=== PATIENT | female | born 1970 | race Caucasian/White ===

== ENCOUNTER 2017-05-06 20:03 | Emergency (ER) | payer MEDICAID ==
[~2017-05-06] VITALS: Ht 157.5 cm; Wt 70.0 kg
[~2017-05-06 20:03] MED LIST: LEVO500T2 PO; ONDA4TAB5 PO
[2017-05-06 23:21] LABS: CHLORIDE 105 mEq/L (98-107)
[2017-05-06 23:23] LABS: BASOPHILS % 0.6 % (0.0-2.0); EOSINOPHILS % 2.9 % (0.0-5.0); HEMOGLOBIN. 12.4 g/dL (12.0-16.0); LYMPHOCYTES % 26.2 % (20.0-50.0); MEAN CORPUSCULAR HEMOGLOBIN 30.7 pg (28.0-32.0); MEAN CORPUSCULAR VOLUME 88.8 fL (81.0-99.0); MEAN PLATELET VOLUME 7.9 fl (7.4-10.4); MONOCYTES % 7.7 % (2.0-8.0); NEUTROPHILS % 62.6 % (40.0-76.0); PLATELET 259 x1000/uL (130-400); RED BLOOD CELL COUNT 4.05 mill/uL (4.2-5.4); RED CELL DISTRIBUTION WIDTH 13.6 % (11.6-14.6)
[2017-05-06 23:25] LABS: CARBON DIOXIDE 26 mEq/L (21-32)
[2017-05-06 23:31] LABS: TROPONIN I < 0.02 ng/mL (0.00-0.04)
[2017-05-07 01:34] VITALS: BP 131/59
== END 2017-05-07 01:35 | disposition home or self-care (01) ==
LOC: ER 22:24
DX: E11.40 Type 2 diabetes mellitus with diabetic neuropathy, unspecified (principal); I10 Essential (primary) hypertension; E78.00 Pure hypercholesterolemia, unspecified; Z90.49 Acquired absence of other specified parts of digestive tract
CPT/HCPCS: 36415; 71010; 80048; 84484; 85025; 93005; 99285; Z7610

== ENCOUNTER 2018-05-24 10:40 | Emergency (ER) | payer MEDICAID ==
[~2018-05-24] VITALS: Ht 162.6 cm; Wt 66.0 kg
[2018-05-24] MEDS ORDERED: IBUPROFEN 600MG TABLET PO STA (11:51)
[2018-05-24] MEDS ORDERED: ACETAMINOPHEN 325MG TABLET PO STA (11:51)
[2018-05-24 12:32] LABS: BASOPHILS % 0.9 % (0.0-2.0); EOSINOPHILS % 3.6 % (0.0-5.0); HEMATOCRIT. 37.9 % (36.0-48.0); LYMPHOCYTES % 23.2 % (20.0-50.0); MEAN CORPUSCULAR HEMOGLOBIN 31.2 pg (28.0-32.0); MEAN CORPUSCULAR VOLUME 90.7 fL (81.0-99.0); MEAN PLATELET VOLUME 7.3 fl (7.4-10.4); MONOCYTES % 7.6 % (2.0-8.0); NEUTROPHILS % 64.7 % (40.0-76.0); PLATELET 289 x1000/uL (130-400); RED BLOOD CELL COUNT 4.18 mill/uL (4.2-5.4); RED CELL DISTRIBUTION WIDTH 13.7 % (11.6-14.6)
[2018-05-24 12:38] LABS: CHLORIDE 103 mEq/L (98-107)
[2018-05-24 12:40] LABS: CLARITY URINE CLEAR (CLEAR); COLOR URINE YELLOW (YELLOW); KETONES URINE NEGATIVE (NEGATIVE); LEUKOCYTE ESTERASE URINE NEGATIVE (NEGATIVE); NITRITE URINE NEGATIVE (NEGATIVE); OCCULT BLOOD URINE 1+ (NEGATIVE); PH URINE 6.5 (4.5-8.0); PROTEIN URINE NEGATIVE (NEGATIVE); SPECIFIC GRAVITY URINE 1.016 (1.005-1.030); UROBILINOGEN URINE 0.2 E.U./dL (0.2-1.0)
[2018-05-24 12:42] LABS: ETHANOL BLOOD < 10 mg/dL
[2018-05-24 13:05] LABS: *AMPHETAMINES SCREEN URINE NEGATIVE (NEGATIVE); *BARBITURATES SCREEN URINE NEGATIVE (NEGATIVE); *BENZODIAZEPINES SCREEN URINE NEGATIVE (NEGATIVE); *COCAINE SCREEN URINE NEGATIVE (NEGATIVE); CANNABINOID URINE SCREEN NEGATIVE (NEGATIVE); METHADONE URINE SCREEN NEGATIVE (NEGATIVE); OPIATES URINE SCREEN NEGATIVE (NEGATIVE); PHENCYCLIDINE URINE SCREEN NEGATIVE (NEGATIVE)
[2018-05-24 14:31] VITALS: BP 122/54
== END 2018-05-24 14:32 | disposition home or self-care (01) ==
LOC: ER 10:48
DX: N39.0 Urinary tract infection, site not specified (principal); M54.2 Cervicalgia; R07.89 Other chest pain; E11.9 Type 2 diabetes mellitus without complications; I10 Essential (primary) hypertension; E78.00 Pure hypercholesterolemia, unspecified; Z90.49 Acquired absence of other specified parts of digestive tract; Z98.890 Other specified postprocedural states
CPT/HCPCS: 36415; 71045; 80053; 80305; 81003; 81025; 83690; 83880; 84484; 85025; 85730; 87086; 93005; 99285; G0482

== ENCOUNTER 2019-07-04 08:56 | Emergency (ER) | payer MEDICAID ==
[~2019-07-04] VITALS: Ht 152.4 cm; Wt 79.0 kg
[2019-07-04] MEDS ORDERED: SODIUM CHLORIDE 0.9% 1000ML BAG (SEPSIS BOLUS) IV ONE (09:30)
[2019-07-04 09:54] LABS: BASOPHILS % 0.4 % (0.0-2.0); EOSINOPHILS % 1.8 % (0.0-5.0); HEMATOCRIT. 37.5 % (36.0-48.0); HEMOGLOBIN. 12.9 g/dL (12.0-16.0); LYMPHOCYTES % 32.2 % (20.0-50.0); MEAN CORPUSCULAR HEMOGLOBIN 30.6 pg (28.0-32.0); MEAN CORPUSCULAR VOLUME 89.2 fL (81.0-99.0); MEAN PLATELET VOLUME 7.5 fl (7.4-10.4); MONOCYTES % 8.3 % (2.0-8.0); NEUTROPHILS % 57.3 % (40.0-76.0); PLATELET 306 x1000/uL (130-400); RED CELL DISTRIBUTION WIDTH 14.1 % (11.6-14.6)
[2019-07-04 09:56] LABS: CHLORIDE 104 mEq/L (98-107)
[2019-07-04 09:57] LABS: PROTHROMBIN TIME 10.3 sec (9.6-11.0)
[2019-07-04 10:12] LABS: HCG SCREEN NEGATIVE
[2019-07-04 10:18] LABS: CLARITY URINE CLEAR (CLEAR); COLOR URINE YELLOW (YELLOW); KETONES URINE NEGATIVE (NEGATIVE); LEUKOCYTE ESTERASE URINE NEGATIVE (NEGATIVE); NITRITE URINE NEGATIVE (NEGATIVE); OCCULT BLOOD URINE 1+ (NEGATIVE); PH URINE 6.5 (4.5-8.0); PROTEIN URINE NEGATIVE (NEGATIVE); SPECIFIC GRAVITY URINE 1.012 (1.005-1.030); UROBILINOGEN URINE 0.2 E.U./dL (0.2-1.0)
[2019-07-04] MEDS ORDERED: KETOROLAC 30MG/ML VIAL IV ONE (11:00)
[2019-07-04] MEDS ORDERED: CEFTRIAXONE 1 G PREMIX 50 ML IV ONE (11:00)
[2019-07-04 15:00] VITALS: BP 121/70
== END 2019-07-04 15:17 | disposition home or self-care (01) ==
LOC: ER 08:56
DX: N30.00 Acute cystitis without hematuria (principal); E11.9 Type 2 diabetes mellitus without complications; E78.00 Pure hypercholesterolemia, unspecified; I10 Essential (primary) hypertension; Z90.49 Acquired absence of other specified parts of digestive tract; Z98.890 Other specified postprocedural states; Z88.6 Allergy status to analgesic agent; Z79.899 Other long term (current) drug therapy; Z86.73 Personal history of transient ischemic attack (TIA), and cerebral infarction without residual deficits; Z87.19 Personal history of other diseases of the digestive system
CPT/HCPCS: 36415; 71045; 74176; 76830; 76856; 80053; 81003; 83605; 83690; 84145; 84484; 84703; 85025; 85610; 87040; 87086; 93005; 96365; 96366; 96375; 99284; J0696; J1885; J7030

== ENCOUNTER 2019-10-24 09:04 | Emergency (ER) | payer MEDICAID ==
[~2019-10-24] VITALS: Ht 154.9 cm; Wt 78.0 kg
[2019-10-24 11:52] LABS: BASOPHILS % 0.8 % (0.0-2.0); EOSINOPHILS % 3.6 % (0.0-5.0); HEMATOCRIT. 37.2 % (36.0-48.0); HEMOGLOBIN. 13.1 g/dL (12.0-16.0); MEAN CORPUSCULAR HEMOGLOBIN 31.5 pg (28.0-32.0); MEAN CORPUSCULAR VOLUME 89.5 fL (81.0-99.0); MEAN PLATELET VOLUME 7.5 fl (7.4-10.4); MONOCYTES % 6.7 % (2.0-8.0); NEUTROPHILS % 62.9 % (40.0-76.0); PLATELET 292 x1000/uL (130-400); RED BLOOD CELL COUNT 4.15 mill/uL (4.2-5.4); RED CELL DISTRIBUTION WIDTH 13.9 % (11.6-14.6)
[2019-10-24 11:56] LABS: CHLORIDE 104 mEq/L (98-107)
[2019-10-24 12:04] LABS: HCG SCREEN NEGATIVE
[2019-10-24 12:27] LABS: CLARITY URINE CLEAR (CLEAR); COLOR URINE YELLOW (YELLOW); KETONES URINE NEGATIVE (NEGATIVE); LEUKOCYTE ESTERASE URINE NEGATIVE (NEGATIVE); NITRITE URINE NEGATIVE (NEGATIVE); OCCULT BLOOD URINE 1+ (NEGATIVE); PROTEIN URINE NEGATIVE (NEGATIVE); SPECIFIC GRAVITY URINE 1.014 (1.005-1.030); UROBILINOGEN URINE 0.2 E.U./dL (0.2-1.0)
[2019-10-24] MEDS ORDERED: KETOROLAC 30MG/ML VIAL IV STA (16:50)
[2019-10-24] MEDS ORDERED: TRAMADOL 50MG TABLET PO ONE (18:45)
[2019-10-24 21:03] VITALS: BP 126/81
== END 2019-10-24 21:03 | disposition home or self-care (01) ==
LOC: ER 09:04
DX: M79.18 Myalgia, other site (principal); R51 Headache; E11.9 Type 2 diabetes mellitus without complications; E78.00 Pure hypercholesterolemia, unspecified; I10 Essential (primary) hypertension; Z90.49 Acquired absence of other specified parts of digestive tract; Z98.890 Other specified postprocedural states; Z88.6 Allergy status to analgesic agent
CPT/HCPCS: 36415; 71045; 80053; 81003; 81025; 82962; 84703; 85025; 93005; 96374; 99285; J1885

== ENCOUNTER 2021-02-06 11:15 | Emergency (ER) | payer MEDICAID ==
[~2021-02-06] VITALS: Ht 157.5 cm; Wt 80.0 kg
[2021-02-06] MEDS ORDERED: MORPHINE SULFATE 2 MG/ML CPJ (NOT FOR IM USE) IV ONE (11:45)
[2021-02-06 12:30] LABS: CLARITY URINE CLEAR (CLEAR); COLOR URINE YELLOW (YELLOW); KETONES URINE TRACE (NEGATIVE); LEUKOCYTE ESTERASE URINE NEGATIVE (NEGATIVE); NITRITE URINE NEGATIVE (NEGATIVE); OCCULT BLOOD URINE 1+ (NEGATIVE); PH URINE 5.5 (4.5-8.0); PROTEIN URINE NEGATIVE (NEGATIVE); SPECIFIC GRAVITY URINE 1.036 (1.005-1.030); UROBILINOGEN URINE 0.2 E.U./dL (0.2-1.0)
[2021-02-06 12:37] LABS: BASOPHILS % 0.6 % (0.0-2.0); EOSINOPHILS % 3.1 % (0.0-5.0); HEMOGLOBIN. 13.2 g/dL (12.0-16.0); LYMPHOCYTES % 29.8 % (20.0-50.0); MEAN CORPUSCULAR HEMOGLOBIN 30.8 pg (28.0-32.0); MEAN CORPUSCULAR VOLUME 88.7 fL (81.0-99.0); MEAN PLATELET VOLUME 7.7 fl (7.4-10.4); MONOCYTES % 7.7 % (2.0-8.0); NEUTROPHILS % 58.8 % (40.0-76.0); PLATELET 250 x1000/uL (130-400); RED BLOOD CELL COUNT 4.28 mill/uL (4.2-5.4); RED CELL DISTRIBUTION WIDTH 13.7 % (11.6-14.6)
[2021-02-06] MEDS ORDERED: KETOROLAC 15MG/ML VIAL IV NR (12:45)
[2021-02-06 12:47] LABS: CHLORIDE 102 mEq/L (98-107)
[2021-02-06] MEDS ORDERED: LACTATED RINGERS 1,000 ML IV SCH (13:15)
[2021-02-06] MEDS ORDERED: SULF1TAB MT (14:03)
[2021-02-06 15:15] VITALS: BP 125/61
== END 2021-02-06 15:19 | disposition home or self-care (01) ==
LOC: ER 11:43
DX: R10.11 Right upper quadrant pain (principal); R30.0 Dysuria; E11.9 Type 2 diabetes mellitus without complications; E78.00 Pure hypercholesterolemia, unspecified; I10 Essential (primary) hypertension; Z98.890 Other specified postprocedural states; Z90.49 Acquired absence of other specified parts of digestive tract
CPT/HCPCS: 36415; 74176; 76700; 80053; 81003; 81025; 83690; 85025; 87086; 96361; 96374; 96375; 99285; J1885; J2270

== ENCOUNTER 2021-04-27 09:21 | Inpatient (IN) | payer MEDICAID ==
[~2021-04-27] VITALS: Ht 152.4 cm; Wt 75.3 kg
[~2021-04-27 09:21] MED LIST changes: +SULF1TAB MT
[2021-04-27] MEDS ORDERED: ACETAMINOPHEN 325MG TABLET PO STA (09:58)
[2021-04-27 10:43] LABS: CLARITY URINE CLEAR (CLEAR); COLOR URINE YELLOW (YELLOW); KETONES URINE NEGATIVE (NEGATIVE); LEUKOCYTE ESTERASE URINE NEGATIVE (NEGATIVE); NITRITE URINE NEGATIVE (NEGATIVE); OCCULT BLOOD URINE 1+ (NEGATIVE); PH URINE 5.5 (4.5-8.0); PROTEIN URINE NEGATIVE (NEGATIVE); SPECIFIC GRAVITY URINE 1.034 (1.005-1.030); UROBILINOGEN URINE 0.2 E.U./dL (0.2-1.0)
[2021-04-27 12:36] LABS: BASOPHILS % 0.6 % (0.0-2.0); EOSINOPHILS % 3.2 % (0.0-5.0); HEMATOCRIT. 38.6 % (36.0-48.0); HEMOGLOBIN. 13.3 g/dL (12.0-16.0); LYMPHOCYTES % 28.3 % (20.0-50.0); MEAN CORPUSCULAR HEMOGLOBIN 30.5 pg (28.0-32.0); MEAN CORPUSCULAR VOLUME 88.7 fL (81.0-99.0); MEAN PLATELET VOLUME 7.5 fl (7.4-10.4); MONOCYTES % 8.4 % (2.0-8.0); NEUTROPHILS % 59.5 % (40.0-76.0); PLATELET 264 x1000/uL (130-400); RED BLOOD CELL COUNT 4.35 mill/uL (4.2-5.4)
[2021-04-27 12:40] LABS: CHLORIDE 106 mEq/L (98-107)
[2021-04-27] MEDS ORDERED: NA PHOS,M-B/NA PHOS,DI-BA ENEMA 118ML PR PRN (14:15)
[2021-04-27] MEDS ORDERED: MAGNESIUM/ALUMINUM HYDROXIDE/SIMETHICONE 30ML UDC PO PRN (14:15)
[2021-04-27] MEDS ORDERED: GUAIFENESIN 200MG/10ML SUGAR FREE UDC PO PRN (14:15)
[2021-04-27] MEDS ORDERED: ACETAMINOPHEN 325MG TABLET PO PRN ×2 (14:15)
[2021-04-27] MEDS ORDERED: DOCUSATE SODIUM 100MG CAPSULE PO PRN (14:15)
[2021-04-27] MEDS ORDERED: ZOLPIDEM TARTRATE 5MG TABLET PO PRN (14:15)
[2021-04-27] MEDS ORDERED: IPRATROPIUM/ALBUTEROL 0.5-3(2.5)MG/3ML NEB NEB PRN (14:15)
[2021-04-27] MEDS ORDERED: NITROGLYCERIN 0.4MG TABLET SL SL PRN (14:15)
[2021-04-27] MEDS ORDERED: CLONIDINE 0.1MG TABLET PO PRN (14:15)
[2021-04-27] MEDS ORDERED: ONDANSETRON HCL 4MG/2ML INJ IV PRN (14:15)
[2021-04-27] MEDS: ENOXAPARIN 40MG/0.4ML SYR SUBCUT SCH (15:07)
[2021-04-27 15:43] LABS: VITAMIN B12 SERUM > 2000.0 pg/mL (211-911)
[2021-04-27] MEDS ORDERED: DEXTROSE 50% WATER 50ML SYRINGE IV PRN (21:45)
[2021-04-27 22:30] VITALS: BP 111/60
[2021-04-27 23:10] VITALS: BP 111/60
[2021-04-27] MEDS: KETOROLAC 15MG/ML VIAL IV PRN (23:20)
[2021-04-27] MEDS: FAMOTIDINE 20MG TABLET PO SCH (23:20)
[2021-04-27] MEDS: ASCORBIC ACID 500 MG TABLET PO SCH (23:20)
[2021-04-28] MEDS ORDERED: METF-416 PO (00:44)
[2021-04-28] MEDS ORDERED: INSU100I28 SUBCUT (00:44)
[2021-04-28] MEDS ORDERED: AMIT10TA6 PO (00:44)
[2021-04-28] MEDS ORDERED: METO-539 PO (00:44)
[2021-04-28] MEDS ORDERED: ALBU90AE INH (00:44)
[2021-04-28] MEDS ORDERED: FAMO20TA8 PO (00:44)
[2021-04-28 04:00] VITALS: BP 105/49
[2021-04-28] MEDS: KETOROLAC 15MG/ML VIAL IV PRN (05:24)
[2021-04-28 07:45] LABS: *AMPHETAMINES SCREEN URINE NEGATIVE (NEGATIVE); *BARBITURATES SCREEN URINE NEGATIVE (NEGATIVE); *BENZODIAZEPINES SCREEN URINE NEGATIVE (NEGATIVE); *COCAINE SCREEN URINE NEGATIVE (NEGATIVE)
[2021-04-28] MEDS: BLOOD SUGAR DIAGNOSTIC STRIP TEST SCH ×2 (07:45→12:26)
[2021-04-28 07:46] LABS: CANNABINOID URINE SCREEN NEGATIVE (NEGATIVE); METHADONE URINE SCREEN NEGATIVE (NEGATIVE); OPIATES URINE SCREEN NEGATIVE (NEGATIVE); PHENCYCLIDINE URINE SCREEN NEGATIVE (NEGATIVE)
[2021-04-28] MEDS: INSULIN LISPRO 100 UNITS/ML SUBCUT SCH ×2 (08:08→12:28)
[2021-04-28] MEDS: ASCORBIC ACID 500 MG TABLET PO SCH (08:12)
[2021-04-28] MEDS: FAMOTIDINE 20MG TABLET PO SCH (08:12)
[2021-04-28] MEDS: ENOXAPARIN 40MG/0.4ML SYR SUBCUT SCH (08:12)
[2021-04-28 08:21] VITALS: BP 103/71
[2021-04-28] MEDS ORDERED: ASPIRIN 325MG EC TABLET PO SCH (09:00)
[2021-04-28] MEDS ORDERED: CHOLECALCIFEROL (D3) 1000 UNIT TABLET PO SCH (09:00)
[2021-04-28] MEDS ORDERED: ZINC SULFATE 220 MG ( 50 ) CAPSULE PO SCH (09:00)
[2021-04-28 10:47] LABS: BASOPHILS % 0.5 % (0.0-2.0); EOSINOPHILS % 3.3 % (0.0-5.0); HEMATOCRIT. 39.8 % (36.0-48.0); HEMOGLOBIN. 13.4 g/dL (12.0-16.0); LYMPHOCYTES % 29.4 % (20.0-50.0); MEAN CORPUSCULAR HEMOGLOBIN 30.2 pg (28.0-32.0); MEAN CORPUSCULAR VOLUME 89.5 fL (81.0-99.0); MONOCYTES % 8.6 % (2.0-8.0); NEUTROPHILS % 58.2 % (40.0-76.0); PLATELET 258 x1000/uL (130-400); RED BLOOD CELL COUNT 4.45 mill/uL (4.2-5.4); RED CELL DISTRIBUTION WIDTH 14.1 % (11.6-14.6)
[2021-04-28 12:00] VITALS: BP 100/59
[2021-04-28 12:11] LABS: CHLORIDE 105 mEq/L (98-107)
[2021-04-28 12:23] LABS: CREATINE KINASE 111 IU/L (26-192)
[2021-04-28 12:37] LABS: PHOSPHORUS 3.7 mg/dL (2.5-4.9)
[2021-04-28 12:42] LABS: CREATINE KINASE MB FRACTION < 1.0 ng/mL (0.5-3.6)
[2021-04-28 13:57] VITALS: BP 110/60
[2021-04-28] MEDS ORDERED: ATORVASTATIN CALCIUM 20MG TABLET PO SCH (21:00)
== END 2021-04-28 15:18 | disposition home or self-care (01) | DRG 203 ==
LOC: ER 09:21 → MICUSO 13:25 → EDBEDREQTM 13:39 → EDBEDREQ 13:39 → 6WST 21:12
PROVIDERS: ADMIT Internal Medicine; ATTEND Internal Medicine
DX: R07.89 Other chest pain (principal); K76.0 Fatty (change of) liver, not elsewhere classified; E11.65 Type 2 diabetes mellitus with hyperglycemia; E66.9 Obesity, unspecified; E78.00 Pure hypercholesterolemia, unspecified; I10 Essential (primary) hypertension; Z79.82 Long term (current) use of aspirin; Z82.49 Family history of ischemic heart disease and other diseases of the circulatory system; Z90.49 Acquired absence of other specified parts of digestive tract; Z88.5 Allergy status to narcotic agent; Z98.891 History of uterine scar from previous surgery
CPT/HCPCS: 36415; 71045; 74176; 80053; 80061; 80305; 81003; 82550; 82553; 82607; 82962; 83036; 83735; 83880; 84100; 84484; 85025; 93005; 93306; 93970; 99285; J1650; J1815; J1885

== ENCOUNTER 2021-05-20 21:00 | Emergency (ER) | payer MEDICAID ==
[~2021-05-20] VITALS: Ht 152.4 cm; Wt 75.9 kg
[~2021-05-20 21:00] MED LIST changes: +ALBU90AE INH; +AMIT10TA6 PO; +FAMO20TA8 PO; +INSU100I28 SUBCUT; +METF-416 PO; +METO-539 PO; +SULF-299 MT; -SULF1TAB MT
[2021-05-20] MEDS ORDERED: IBUPROFEN 600MG TABLET PO STA (22:35)
[2021-05-20] MEDS ORDERED: BACITRACIN ZINC OINT UDPKT TOP ONE (23:00)
[2021-05-20] MEDS ORDERED: TETANUS, DIPHTHERIA, PERTUSSIS VAC/PF 0.5ML (>7YR OLD) IM ONE (23:00)
[2021-05-21] MEDS ORDERED: BACITRACIN ZINC OINT UDPKT TOP ONE (00:30)
[2021-05-21] MEDS ORDERED: LIDOCAINE HCL/PF 1% 10 MG/ML 5ML VIAL INFIL ONE (00:30)
[2021-05-21] MEDS ORDERED: SULF1TAB48 PO (00:55)
[2021-05-21] MEDS ORDERED: CEPH500C2 MT (00:55)
[2021-05-21] MEDS ORDERED: IBUP-2029 PO (00:55)
[2021-05-21 01:00] VITALS: BP 119/69
== END 2021-05-21 01:00 | disposition home or self-care (01) ==
LOC: ER 21:00
DX: S91.331A Puncture wound without foreign body, right foot, initial encounter (principal); L03.115 Cellulitis of right lower limb; W26.0XXA Contact with knife, initial encounter; Y93.89 Activity, other specified; Y92.89 Other specified places as the place of occurrence of the external cause; I10 Essential (primary) hypertension; E11.9 Type 2 diabetes mellitus without complications; Z79.899 Other long term (current) drug therapy; Z79.4 Long term (current) use of insulin
CPT/HCPCS: 73590; 73630; 90471; 90715; 99284; J3490; Z7610

== ENCOUNTER 2021-05-23 08:53 | Emergency (ER) | payer MEDICAID ==
[~2021-05-23] VITALS: Ht 157.5 cm; Wt 74.0 kg
[~2021-05-23 08:53] MED LIST changes: +CEPH500C2 MT; +IBUP-2029 PO; +SULF1TAB48 PO
[2021-05-23 11:39] VITALS: BP 135/79
[2021-05-23] MEDS ORDERED: GABA-532 MT (11:44)
[2021-05-23] MEDS ORDERED: HYDROCODONE/ACETAMINOPHEN 5/325MG TABLET PO ONE (11:45)
== END 2021-05-23 12:27 | disposition home or self-care (01) ==
LOC: ER 08:53
DX: E11.649 Type 2 diabetes mellitus with hypoglycemia without coma (principal); E11.621 Type 2 diabetes mellitus with foot ulcer; G62.9 Polyneuropathy, unspecified; R10.9 Unspecified abdominal pain; K76.9 Liver disease, unspecified; E78.00 Pure hypercholesterolemia, unspecified; I10 Essential (primary) hypertension; Z79.4 Long term (current) use of insulin
CPT/HCPCS: 82962; 99283

== ENCOUNTER 2021-07-04 19:14 | Emergency (ER) | payer MEDICAID ==
[~2021-07-04] VITALS: Ht 152.4 cm; Wt 74.0 kg
[~2021-07-04 19:14] MED LIST changes: +GABA-532 MT
[2021-07-05] MEDS ORDERED: ACETAMINOPHEN 325MG TABLET PO STA (00:08)
[2021-07-05] MEDS ORDERED: KETOROLAC 30MG/ML VIAL IV STA (00:08)
[2021-07-05] MEDS ORDERED: ONDANSETRON HCL 4MG/2ML INJ IV STA (00:08)
[2021-07-05] MEDS ORDERED: SODIUM CHLORIDE 0.9% 1,000 ML IV ONE (00:15)
[2021-07-05 00:33] LABS: BASOPHILS % 0.5 % (0.0-2.0); EOSINOPHILS % 2.9 % (0.0-5.0); HEMATOCRIT. 37.9 % (36.0-48.0); HEMOGLOBIN. 13.5 g/dL (12.0-16.0); LYMPHOCYTES % 28.9 % (20.0-50.0); MEAN CORPUSCULAR HEMOGLOBIN 31.6 pg (28.0-32.0); MEAN CORPUSCULAR VOLUME 88.6 fL (81.0-99.0); MEAN PLATELET VOLUME 7.5 fl (7.4-10.4); MONOCYTES % 8.3 % (2.0-8.0); NEUTROPHILS % 59.4 % (40.0-76.0); PLATELET 265 x1000/uL (130-400); RED BLOOD CELL COUNT 4.28 mill/uL (4.2-5.4); RED CELL DISTRIBUTION WIDTH 13.5 % (11.6-14.6)
[2021-07-05 00:43] LABS: CHLORIDE 102 mEq/L (98-107)
[2021-07-05 00:46] LABS: ETHANOL BLOOD < 10 mg/dL
[2021-07-05 01:12] LABS: PROTHROMBIN TIME 10.4 sec (9.6-11.0)
[2021-07-05 03:29] LABS: CLARITY URINE CLEAR (CLEAR); COLOR URINE YELLOW (YELLOW); KETONES URINE NEGATIVE (NEGATIVE); LEUKOCYTE ESTERASE URINE NEGATIVE (NEGATIVE); NITRITE URINE NEGATIVE (NEGATIVE); OCCULT BLOOD URINE TRACE (NEGATIVE); PH URINE 7.5 (4.5-8.0); PROTEIN URINE NEGATIVE (NEGATIVE); SPECIFIC GRAVITY URINE 1.025 (1.005-1.030); UROBILINOGEN URINE 0.2 E.U./dL (0.2-1.0)
[2021-07-05] MEDS ORDERED: IOHEXOL-300 100 ML BOTTLE ONE (04:04)
[2021-07-05 05:25] VITALS: BP 109/66
== END 2021-07-05 05:52 | disposition home or self-care (01) ==
LOC: ER 19:14 → CANBEDREQ 07-05 07:11
DX: R10.11 Right upper quadrant pain (principal); E11.9 Type 2 diabetes mellitus without complications; E78.00 Pure hypercholesterolemia, unspecified; I10 Essential (primary) hypertension; Z90.49 Acquired absence of other specified parts of digestive tract; Z98.890 Other specified postprocedural states; Z79.899 Other long term (current) drug therapy
CPT/HCPCS: 36415; 74177; 76705; 80053; 80320; 81003; 83605; 83690; 84484; 85025; 85610; 93005; 96361; 96374; 96375; 99285; J1885; J2405; J7030; Q9967; G0480

== ENCOUNTER 2021-07-11 13:18 | Emergency (ER) | payer MEDICAID ==
[~2021-07-11] VITALS: Ht 152.4 cm; Wt 69.0 kg
[2021-07-11] MEDS ORDERED: DIPHENHYDRAMINE 50MG/ML VIAL IV ONE (13:45)
[2021-07-11] MEDS ORDERED: SODIUM CHLORIDE 0.9% 1,000 ML IV ONE (13:45)
[2021-07-11] MEDS ORDERED: METOCLOPRAMIDE HCL 10MG/2ML VIAL IV ONE (13:45)
[2021-07-11 14:00] VITALS: BP 108/90
[2021-07-11 15:01] LABS: BASOPHILS % 0.7 % (0.0-2.0); EOSINOPHILS % 1.7 % (0.0-5.0); HEMOGLOBIN. 14.3 g/dL (12.0-16.0); LYMPHOCYTES % 21.8 % (20.0-50.0); MEAN CORPUSCULAR HEMOGLOBIN 30.4 pg (28.0-32.0); MEAN CORPUSCULAR VOLUME 89.2 fL (81.0-99.0); MEAN PLATELET VOLUME 7.9 fl (7.4-10.4); MONOCYTES % 5.5 % (2.0-8.0); NEUTROPHILS % 70.3 % (40.0-76.0); PLATELET 271 x1000/uL (130-400); RED BLOOD CELL COUNT 4.71 mill/uL (4.2-5.4); RED CELL DISTRIBUTION WIDTH 13.6 % (11.6-14.6)
[2021-07-11 15:07] LABS: CHLORIDE 103 mEq/L (98-107)
== END 2021-07-11 15:53 | disposition home or self-care (01) ==
LOC: ER 13:18
DX: G43.909 Migraine, unspecified, not intractable, without status migrainosus (principal); E11.9 Type 2 diabetes mellitus without complications; I10 Essential (primary) hypertension; N28.9 Disorder of kidney and ureter, unspecified; F41.9 Anxiety disorder, unspecified; Z90.49 Acquired absence of other specified parts of digestive tract; Z98.61 Coronary angioplasty status; Z79.4 Long term (current) use of insulin; Z88.5 Allergy status to narcotic agent
CPT/HCPCS: 36415; 70450; 80053; 85025; 96374; 96375; 99284; J1200; J2765; J7030

== ENCOUNTER 2021-07-24 08:22 | Emergency (ER) | payer MEDICAID ==
[~2021-07-24] VITALS: Ht 157.5 cm; Wt 73.0 kg
[2021-07-24 14:31] LABS: CLARITY URINE CLEAR (CLEAR); COLOR URINE YELLOW (YELLOW); KETONES URINE NEGATIVE (NEGATIVE); LEUKOCYTE ESTERASE URINE NEGATIVE (NEGATIVE); NITRITE URINE NEGATIVE (NEGATIVE); OCCULT BLOOD URINE TRACE (NEGATIVE); PROTEIN URINE NEGATIVE (NEGATIVE); SPECIFIC GRAVITY URINE 1.024 (1.005-1.030); UROBILINOGEN URINE 0.2 E.U./dL (0.2-1.0)
[2021-07-24] MEDS ORDERED: AZIT250T12 MT (14:54)
[2021-07-24] MEDS ORDERED: ALBU18HF2 IH (14:54)
[2021-07-24 15:17] VITALS: BP 146/62
== END 2021-07-24 15:18 | disposition home or self-care (01) ==
LOC: ER 08:22
DX: J20.9 Acute bronchitis, unspecified (principal); F41.9 Anxiety disorder, unspecified; E11.9 Type 2 diabetes mellitus without complications; I10 Essential (primary) hypertension; G43.909 Migraine, unspecified, not intractable, without status migrainosus; Z90.49 Acquired absence of other specified parts of digestive tract; Z98.890 Other specified postprocedural states; Z79.899 Other long term (current) drug therapy; Z20.822 Contact with and (suspected) exposure to COVID-19
CPT/HCPCS: 71045; 81003; 81025; 87426; 99284

== ENCOUNTER 2021-09-29 08:50 | Emergency (ER) | payer MEDICAID ==
[~2021-09-29] VITALS: Ht 152.4 cm; Wt 80.0 kg
[~2021-09-29 08:50] MED LIST changes: +ALBU18HF2 IH; +AZIT250T12 MT
[2021-09-29 08:52] VITALS: BP 145/80
[2021-09-29 09:51] LABS: BASOPHILS % 0.6 % (0.0-2.0); EOSINOPHILS % 2.3 % (0.0-5.0); HEMATOCRIT. 41.7 % (36.0-48.0); HEMOGLOBIN. 14.1 g/dL (12.0-16.0); LYMPHOCYTES % 31.6 % (20.0-50.0); MEAN CORPUSCULAR HEMOGLOBIN 30.3 pg (28.0-32.0); MEAN CORPUSCULAR VOLUME 89.5 fL (81.0-99.0); MEAN PLATELET VOLUME 7.6 fl (7.4-10.4); MONOCYTES % 6.4 % (2.0-8.0); NEUTROPHILS % 59.1 % (40.0-76.0); PLATELET 265 x1000/uL (130-400); RED BLOOD CELL COUNT 4.66 mill/uL (4.2-5.4); RED CELL DISTRIBUTION WIDTH 13.7 % (11.6-14.6)
[2021-09-29 09:58] LABS: CHLORIDE 101 mEq/L (98-107)
[2021-09-29 10:06] LABS: HCG SCREEN NEGATIVE
[2021-09-29] MEDS ORDERED: MAGNESIUM/ALUMINUM HYDROXIDE/SIMETHICONE 30ML UDC PO ONE (12:45)
[2021-09-29 13:17] LABS: CLARITY URINE CLEAR (CLEAR); COLOR URINE YELLOW (YELLOW); KETONES URINE NEGATIVE (NEGATIVE); LEUKOCYTE ESTERASE URINE TRACE (NEGATIVE); NITRITE URINE NEGATIVE (NEGATIVE); OCCULT BLOOD URINE TRACE (NEGATIVE); PROTEIN URINE TRACE (NEGATIVE); SPECIFIC GRAVITY URINE 1.015 (1.005-1.030); UROBILINOGEN URINE 0.2 E.U./dL (0.2-1.0)
[2021-09-29] MEDS ORDERED: NITR-87 MT (15:43)
[2021-09-29] MEDS ORDERED: OMEP20CA14 MT (15:43)
== END 2021-09-29 16:02 | disposition home or self-care (01) ==
LOC: ER 08:50
DX: N39.0 Urinary tract infection, site not specified (principal); R07.89 Other chest pain; E11.9 Type 2 diabetes mellitus without complications; J45.909 Unspecified asthma, uncomplicated; I11.9 Hypertensive heart disease without heart failure; Z79.84 Long term (current) use of oral hypoglycemic drugs; Z98.890 Other specified postprocedural states; Z88.5 Allergy status to narcotic agent
CPT/HCPCS: 36415; 71045; 80053; 81003; 84484; 84703; 85025; 87426; 93005; 99285

== ENCOUNTER 2022-02-15 17:57 | Inpatient (IN) | payer MEDICAID ==
[~2022-02-15] VITALS: Ht 154.9 cm; Wt 69.6 kg
[~2022-02-15 17:57] MED LIST changes: +NITR-87 MT; +OMEP20CA14 MT; +SITA25TA3 PO
[2022-02-15] MEDS ORDERED: PANTOPRAZOLE SODIUM 40 MG/VIAL IV STA (18:20)
[2022-02-15] MEDS ORDERED: MAGNESIUM/ALUMINUM HYDROXIDE/SIMETHICONE 30ML UDC PO STA (18:20)
[2022-02-15] MEDS ORDERED: VISCOUS LIDOCAINE 2% 15 ML UDC PO STA (18:20)
[2022-02-15] MEDS ORDERED: SODIUM CHLORIDE 0.9% 1,000 ML IV ONE (18:30)
[2022-02-15 20:21] LABS: BASOPHILS % 0.5 % (0.0-2.0); EOSINOPHILS % 1.7 % (0.0-5.0); HEMATOCRIT. 38.5 % (36.0-48.0); HEMOGLOBIN. 13.1 g/dL (12.0-16.0); MEAN CORPUSCULAR HEMOGLOBIN 31.5 pg (28.0-32.0); MEAN CORPUSCULAR VOLUME 92.4 fL (81.0-99.0); MEAN PLATELET VOLUME 7.8 fl (7.4-10.4); MONOCYTES % 7.3 % (2.0-8.0); NEUTROPHILS % 68.5 % (40.0-76.0); PLATELET 259 x1000/uL (130-400); RED BLOOD CELL COUNT 4.17 mill/uL (4.2-5.4); RED CELL DISTRIBUTION WIDTH 13.1 % (11.6-14.6)
[2022-02-15 20:24] LABS: HCG SCREEN NEGATIVE
[2022-02-15 20:26] LABS: CHLORIDE 106 mEq/L (98-107)
[2022-02-15 20:33] LABS: ETHANOL BLOOD < 10 mg/dL
[2022-02-15 20:39] LABS: CLARITY URINE CLEAR (CLEAR); COLOR URINE YELLOW (YELLOW); KETONES URINE NEGATIVE (NEGATIVE); LEUKOCYTE ESTERASE URINE 1+ (NEGATIVE); NITRITE URINE NEGATIVE (NEGATIVE); OCCULT BLOOD URINE 1+ (NEGATIVE); PROTEIN URINE NEGATIVE (NEGATIVE); SPECIFIC GRAVITY URINE 1.019 (1.005-1.030); UROBILINOGEN URINE 0.2 E.U./dL (0.2-1.0)
[2022-02-15] MEDS ORDERED: PROCHLORPERAZINE 10MG/2ML VIAL IM NR (20:45)
[2022-02-15] MEDS ORDERED: LORAZEPAM 2MG/ML CPJ IV NR (20:45)
[2022-02-15 20:53] LABS: *AMPHETAMINES SCREEN URINE NEGATIVE (NEGATIVE); *BARBITURATES SCREEN URINE NEGATIVE (NEGATIVE); *BENZODIAZEPINES SCREEN URINE NEGATIVE (NEGATIVE); *COCAINE SCREEN URINE NEGATIVE (NEGATIVE); CANNABINOID URINE SCREEN NEGATIVE (NEGATIVE); METHADONE URINE SCREEN NEGATIVE (NEGATIVE); OPIATES URINE SCREEN NEGATIVE (NEGATIVE); PHENCYCLIDINE URINE SCREEN NEGATIVE (NEGATIVE)
[2022-02-15] MEDS ORDERED: CEFTRIAXONE 1 G PREMIX 50 ML IV NR (22:15)
[2022-02-16] MEDS ORDERED: MAGNESIUM/ALUMINUM HYDROXIDE/SIMETHICONE 30ML UDC PO PRN (00:30)
[2022-02-16] MEDS ORDERED: ACETAMINOPHEN 325MG TABLET PO PRN (00:30)
[2022-02-16] MEDS ORDERED: DEXTROSE 50% WATER 50ML SYRINGE IV PRN (00:30)
[2022-02-16] MEDS ORDERED: GUAIFENESIN 200MG/10ML SUGAR FREE UDC PO PRN (00:30)
[2022-02-16] MEDS ORDERED: DOCUSATE SODIUM 100MG CAPSULE PO PRN (00:30)
[2022-02-16] MEDS ORDERED: ZOLPIDEM TARTRATE 5MG TABLET PO PRN (00:30)
[2022-02-16] MEDS ORDERED: CLONIDINE 0.1MG TABLET PO PRN (00:30)
[2022-02-16] MEDS ORDERED: IPRATROPIUM/ALBUTEROL 0.5-3(2.5)MG/3ML NEB NEB PRN (00:30)
[2022-02-16] MEDS ORDERED: NITROGLYCERIN 0.4MG TABLET SL SL PRN (00:30)
[2022-02-16] MEDS ORDERED: CEFTRIAXONE 1 G PREMIX 50 ML IV SCH (01:00)
[2022-02-16] MEDS: KETOROLAC 15MG/ML VIAL IV PRN ×2 (01:33→17:55)
[2022-02-16 02:26] LABS: FOLIC ACID (FOLATE) SERUM >20 ng/mL ng/mL (>5.38); VITAMIN B12 SERUM 504 pg/mL (211-911)
[2022-02-16] MEDS ORDERED: LEVOFLOXACIN 500MG PREMIX 100 ML IV SCH (03:00)
[2022-02-16 04:03] VITALS: BP 112/64
[2022-02-16] MEDS: LEVOFLOXACIN 500MG PREMIX 100 ML IV SCH (05:58)
[2022-02-16] MEDS: BLOOD SUGAR DIAGNOSTIC STRIP TEST SCH ×4 (06:07→20:42)
[2022-02-16 08:00] VITALS: BP 114/60
[2022-02-16] MEDS: FAMOTIDINE 20MG TABLET PO SCH ×2 (08:46→20:41)
[2022-02-16] MEDS: ENOXAPARIN 40MG/0.4ML SYR SUBCUT SCH (08:47)
[2022-02-16] MEDS: INSULIN LISPRO 100 UNITS/ML SUBCUT SCH ×4 (08:55→20:41)
[2022-02-16 11:24] LABS: CREATINE KINASE 129 IU/L (26-192); CREATINE KINASE MB FRACTION < 1.0 ng/mL (0.5-3.6)
[2022-02-16] MEDS: ACETAMINOPHEN 325MG TABLET PO PRN (11:49)
[2022-02-16 12:00] VITALS: BP 121/72
[2022-02-16 15:55] VITALS: BP 124/71
[2022-02-16 19:19] LABS: CREATINE KINASE 139 IU/L (26-192); CREATINE KINASE MB FRACTION < 1.0 ng/mL (0.5-3.6)
[2022-02-16] MEDS: CEFTRIAXONE 1,000 MG in DEXTROSE 5% WATER 50 ML IV SCH (20:42)
[2022-02-17 03:09] LABS: HEPATITIS B SURFACE ANTIGEN NEGATIVE
[2022-02-17] MEDS: LEVOFLOXACIN 500MG PREMIX 100 ML IV SCH (05:48)
[2022-02-17] MEDS: KETOROLAC 15MG/ML VIAL IV PRN ×3 (05:49→20:05)
[2022-02-17] MEDS: BLOOD SUGAR DIAGNOSTIC STRIP TEST SCH ×4 (06:23→21:11)
[2022-02-17 08:00] VITALS: BP 126/72
[2022-02-17 08:03] LABS: BASOPHILS % 0.6 % (0.0-2.0); EOSINOPHILS % 2.5 % (0.0-5.0); HEMATOCRIT. 37.5 % (36.0-48.0); HEMOGLOBIN. 12.9 g/dL (12.0-16.0); MEAN CORPUSCULAR HEMOGLOBIN 31.2 pg (28.0-32.0); MEAN CORPUSCULAR VOLUME 90.7 fL (81.0-99.0); MEAN PLATELET VOLUME 8.2 fl (7.4-10.4); MONOCYTES % 7.1 % (2.0-8.0); NEUTROPHILS % 66.8 % (40.0-76.0); PLATELET 255 x1000/uL (130-400); RED BLOOD CELL COUNT 4.13 mill/uL (4.2-5.4); RED CELL DISTRIBUTION WIDTH 13.1 % (11.6-14.6)
[2022-02-17 08:20] LABS: CHLORIDE 105 mEq/L (98-107)
[2022-02-17] MEDS: ENOXAPARIN 40MG/0.4ML SYR SUBCUT SCH (08:24)
[2022-02-17] MEDS: FAMOTIDINE 20MG TABLET PO SCH ×2 (08:24→20:05)
[2022-02-17 08:27] LABS: PHOSPHORUS 3.9 mg/dL (2.5-4.9)
[2022-02-17] MEDS: INSULIN LISPRO 100 UNITS/ML SUBCUT SCH ×4 (08:41→21:11)
[2022-02-17 12:00] VITALS: BP 115/75
[2022-02-17 16:00] VITALS: BP 105/53
[2022-02-17 20:00] VITALS: BP 123/74
[2022-02-17] MEDS: CEFTRIAXONE 1,000 MG in DEXTROSE 5% WATER 50 ML IV SCH (20:05)
[2022-02-18] VITALS: BP 106/64
[2022-02-18 04:00] VITALS: BP 107/62
[2022-02-18] MEDS: BLOOD SUGAR DIAGNOSTIC STRIP TEST SCH ×4 (06:22→20:27)
[2022-02-18] MEDS: LEVOFLOXACIN 500MG TABLET PO SCH (08:51)
[2022-02-18] MEDS: FAMOTIDINE 20MG TABLET PO SCH ×2 (08:51→20:27)
[2022-02-18] MEDS: ENOXAPARIN 40MG/0.4ML SYR SUBCUT SCH (08:52)
[2022-02-18] MEDS: ONDANSETRON HCL 4MG/2ML INJ IV PRN (08:52)
[2022-02-18] MEDS: INSULIN LISPRO 100 UNITS/ML SUBCUT SCH ×4 (08:59→20:52)
[2022-02-18 12:00] VITALS: BP 129/79
[2022-02-18] MEDS: KETOROLAC 15MG/ML VIAL IV PRN ×3 (14:32→22:53)
[2022-02-18 16:00] VITALS: BP 120/75
[2022-02-18 20:00] VITALS: BP 144/71
[2022-02-18] MEDS: CEFTRIAXONE 1,000 MG in DEXTROSE 5% WATER 50 ML IV SCH (20:27)
[2022-02-18] MEDS: ACETAMINOPHEN 325MG TABLET PO PRN (23:04)
[2022-02-19 04:45] VITALS: BP 130/87
[2022-02-19] MEDS: ACETAMINOPHEN 325MG TABLET PO PRN ×2 (04:53→09:12)
[2022-02-19] MEDS: BLOOD SUGAR DIAGNOSTIC STRIP TEST SCH (07:20)
[2022-02-19 08:00] VITALS: BP 116/60
[2022-02-19] MEDS: FAMOTIDINE 20MG TABLET PO SCH (09:11)
[2022-02-19] MEDS: ENOXAPARIN 40MG/0.4ML SYR SUBCUT SCH (09:12)
[2022-02-19] MEDS: ONDANSETRON HCL 4MG/2ML INJ IV PRN (09:13)
[2022-02-19] MEDS: INSULIN LISPRO 100 UNITS/ML SUBCUT SCH (09:20)
[2022-02-19] MEDS ORDERED: LACTULOSE 20G/30ML UDC PO SCH (10:00)
[2022-02-19] MEDS: LEVOFLOXACIN 500MG TABLET PO SCH (10:08)
[2022-02-19 11:20] VITALS: BP 60/71
[2022-02-19 12:00] VITALS: BP 132/75
== END 2022-02-19 11:52 | disposition home or self-care (01) | DRG 720 ==
LOC: ER 17:57 → 6EST 23:48 → ENRESERV 02-16 02:39
PROVIDERS: ADMIT Internal Medicine; ATTEND Internal Medicine
DX: A41.9 Sepsis, unspecified organism (principal); K31.84 Gastroparesis; E11.43 Type 2 diabetes mellitus with diabetic autonomic (poly)neuropathy; E87.1 Hypo-osmolality and hyponatremia; N39.0 Urinary tract infection, site not specified; I10 Essential (primary) hypertension; Z20.822 Contact with and (suspected) exposure to COVID-19; K29.70 Gastritis, unspecified, without bleeding; E78.00 Pure hypercholesterolemia, unspecified; I20.9 Angina pectoris, unspecified; M19.90 Unspecified osteoarthritis, unspecified site; Z86.73 Personal history of transient ischemic attack (TIA), and cerebral infarction without residual deficits; Z88.8 Allergy status to other drugs, medicaments and biological substances; Z79.899 Other long term (current) drug therapy; Z90.49 Acquired absence of other specified parts of digestive tract; Z82.49 Family history of ischemic heart disease and other diseases of the circulatory system; E11.65 Type 2 diabetes mellitus with hyperglycemia
CPT/HCPCS: 36415; 71045; 74176; 76700; 80053; 80061; 80305; 80320; 81003; 82550; 82553; 82607; 82746; 82962; 83036; 83540; 83550; 83735; 84100; 84443; 84484; 84703; 85025; 93005; 93970; 99285; C9113; J0696; J0780; J1650; J1815; J1885; J1956; J2405; J7030; J7060; G0480

== ENCOUNTER 2022-04-20 10:23 | Emergency (ER) | payer MEDICAID ==
[~2022-04-20] VITALS: Ht 152.4 cm; Wt 70.0 kg
[2022-04-20 10:38] VITALS: BP 145/85
[2022-04-20 14:51] LABS: CLARITY URINE CLEAR (CLEAR); COLOR URINE YELLOW (YELLOW); KETONES URINE NEGATIVE (NEGATIVE); LEUKOCYTE ESTERASE URINE 1+ (NEGATIVE); NITRITE URINE NEGATIVE (NEGATIVE); OCCULT BLOOD URINE 1+ (NEGATIVE); PH URINE 5.5 (4.5-8.0); PROTEIN URINE NEGATIVE (NEGATIVE); SPECIFIC GRAVITY URINE 1.014 (1.005-1.030); UROBILINOGEN URINE 0.2 E.U./dL (0.2-1.0)
[2022-04-20 14:57] LABS: BASOPHILS % 0.6 % (0.0-2.0); EOSINOPHILS % 2.4 % (0.0-5.0); HEMATOCRIT. 40.8 % (36.0-48.0); HEMOGLOBIN. 14.2 g/dL (12.0-16.0); LYMPHOCYTES % 25.9 % (20.0-50.0); MEAN CORPUSCULAR HEMOGLOBIN 31.7 pg (28.0-32.0); MEAN PLATELET VOLUME 7.7 fl (7.4-10.4); NEUTROPHILS % 64.1 % (40.0-76.0); PLATELET 266 x1000/uL (130-400); RED BLOOD CELL COUNT 4.48 mill/uL (4.2-5.4)
[2022-04-20 15:06] LABS: CHLORIDE 103 mEq/L (98-107)
[2022-04-20] MEDS ORDERED: CEPH500C2 MT (15:54)
[2022-04-20] MEDS ORDERED: PYR200 MT (15:54)
== END 2022-04-20 16:11 | disposition home or self-care (01) ==
LOC: ER 10:23
DX: N39.0 Urinary tract infection, site not specified (principal); E11.65 Type 2 diabetes mellitus with hyperglycemia; I10 Essential (primary) hypertension; E78.00 Pure hypercholesterolemia, unspecified; Z86.73 Personal history of transient ischemic attack (TIA), and cerebral infarction without residual deficits; Z79.84 Long term (current) use of oral hypoglycemic drugs; Z79.4 Long term (current) use of insulin; Z88.5 Allergy status to narcotic agent
CPT/HCPCS: 36415; 80053; 81003; 85025; 99283

== ENCOUNTER 2022-05-07 10:20 | Emergency (ER) | payer MEDICAID ==
[~2022-05-07] VITALS: Ht 172.7 cm; Wt 73.0 kg
[~2022-05-07 10:20] MED LIST changes: +PYR200 MT
[2022-05-07 10:33] VITALS: BP 141/85
[2022-05-07] MEDS ORDERED: ACETAMINOPHEN 325MG TABLET PO STA (11:13)
[2022-05-07] MEDS ORDERED: ONDANSETRON 4MG ODT PO ONE (11:15)
[2022-05-07] MEDS ORDERED: MAGNESIUM/ALUMINUM HYDROXIDE/SIMETHICONE 30ML UDC PO ONE (11:15)
[2022-05-07] MEDS ORDERED: FAMOTIDINE 20MG TABLET PO ONE (11:15)
[2022-05-07 12:08] LABS: BASOPHILS % 0.7 % (0.0-2.0); EOSINOPHILS % 2.1 % (0.0-5.0); HEMATOCRIT. 41.8 % (36.0-48.0); HEMOGLOBIN. 14.3 g/dL (12.0-16.0); LYMPHOCYTES % 29.6 % (20.0-50.0); MEAN CORPUSCULAR HEMOGLOBIN 31.8 pg (28.0-32.0); MEAN CORPUSCULAR VOLUME 92.7 fL (81.0-99.0); MONOCYTES % 6.8 % (2.0-8.0); NEUTROPHILS % 60.8 % (40.0-76.0); PLATELET 262 x1000/uL (130-400); RED BLOOD CELL COUNT 4.51 mill/uL (4.2-5.4); RED CELL DISTRIBUTION WIDTH 12.9 % (11.6-14.6)
[2022-05-07 12:10] LABS: CLARITY URINE CLEAR (CLEAR); COLOR URINE YELLOW (YELLOW); KETONES URINE NEGATIVE (NEGATIVE); LEUKOCYTE ESTERASE URINE NEGATIVE (NEGATIVE); NITRITE URINE NEGATIVE (NEGATIVE); OCCULT BLOOD URINE TRACE (NEGATIVE); PH URINE 6.5 (4.5-8.0); PROTEIN URINE NEGATIVE (NEGATIVE); SPECIFIC GRAVITY URINE 1.037 (1.005-1.030); UROBILINOGEN URINE 0.2 E.U./dL (0.2-1.0)
[2022-05-07 12:16] LABS: CHLORIDE 101 mEq/L (98-107)
[2022-05-07] MEDS ORDERED: POLY119P2 PO (13:11)
[2022-05-07] MEDS ORDERED: ACET-2708 PO (13:11)
[2022-05-07] MEDS ORDERED: FAMO20TA8 PO (13:11)
[2022-05-07] MEDS ORDERED: DOCU100T PO (13:11)
== END 2022-05-07 13:25 | disposition home or self-care (01) ==
LOC: ER 10:26
DX: U07.1 COVID-19 (principal); K21.9 Gastro-esophageal reflux disease without esophagitis; K59.00 Constipation, unspecified
CPT/HCPCS: 36415; 71045; 80053; 81003; 81025; 83690; 85025; 99284; Q0162

== ENCOUNTER 2022-06-04 10:56 | Emergency (ER) | payer MEDICAID ==
[~2022-06-04] VITALS: Ht 162.6 cm; Wt 77.0 kg
[~2022-06-04 10:56] MED LIST changes: +ACET-2708 PO; +DOCU100T PO; +POLY119P2 PO
[2022-06-04] MEDS ORDERED: ONDANSETRON HCL 4MG/2ML INJ IV STA (11:55)
[2022-06-04] MEDS ORDERED: MAGNESIUM/ALUMINUM HYDROXIDE/SIMETHICONE 30ML UDC PO STA (11:55)
[2022-06-04] MEDS ORDERED: MORPHINE SULFATE 4 MG/ML CPJ (NOT FOR IM USE) IV STA (11:55)
[2022-06-04] MEDS ORDERED: VISCOUS LIDOCAINE 2% 15 ML UDC PO STA (11:55)
[2022-06-04] MEDS ORDERED: FAMOTIDINE 20MG/2ML VIAL IV STA (11:55)
[2022-06-04 12:15] LABS: CLARITY URINE CLEAR (CLEAR); COLOR URINE YELLOW (YELLOW); KETONES URINE NEGATIVE (NEGATIVE); LEUKOCYTE ESTERASE URINE 1+ (NEGATIVE); NITRITE URINE NEGATIVE (NEGATIVE); OCCULT BLOOD URINE 1+ (NEGATIVE); PH URINE 5.5 (4.5-8.0); PROTEIN URINE NEGATIVE (NEGATIVE); SPECIFIC GRAVITY URINE 1.017 (1.005-1.030); UROBILINOGEN URINE 0.2 E.U./dL (0.2-1.0)
[2022-06-04 12:30] LABS: BASOPHILS % 0.6 % (0.0-2.0); EOSINOPHILS % 2.2 % (0.0-5.0); HEMATOCRIT. 41.8 % (36.0-48.0); HEMOGLOBIN. 14.4 g/dL (12.0-16.0); LYMPHOCYTES % 31.7 % (20.0-50.0); MEAN CORPUSCULAR HEMOGLOBIN 31.5 pg (28.0-32.0); MEAN PLATELET VOLUME 7.6 fl (7.4-10.4); MONOCYTES % 7.9 % (2.0-8.0); NEUTROPHILS % 57.6 % (40.0-76.0); PLATELET 246 x1000/uL (130-400); RED BLOOD CELL COUNT 4.59 mill/uL (4.2-5.4); RED CELL DISTRIBUTION WIDTH 13.4 % (11.6-14.6)
[2022-06-04 12:36] LABS: CHLORIDE 102 mEq/L (98-107)
[2022-06-04 12:39] LABS: PROTHROMBIN TIME 10.6 sec (9.6-11.0)
[2022-06-04] MEDS ORDERED: MAGNESIUM/ALUMINUM HYDROXIDE/SIMETHICONE 30ML UDC PO NR (12:45)
[2022-06-04] MEDS ORDERED: CEFTRIAXONE 1 G PREMIX 50 ML IV ONE (13:00)
[2022-06-04] MEDS ORDERED: SODIUM CHLORIDE 0.9% 1,000 ML IV ONE (13:00)
[2022-06-04] MEDS ORDERED: CEFP200T13 MT (13:58)
[2022-06-04] MEDS ORDERED: FAMO40TA70 MT (13:58)
[2022-06-04 16:24] VITALS: BP 137/83
== END 2022-06-04 16:34 | disposition home or self-care (01) ==
LOC: ER 11:07
DX: N39.0 Urinary tract infection, site not specified (principal); K52.9 Noninfective gastroenteritis and colitis, unspecified; E11.9 Type 2 diabetes mellitus without complications; E78.00 Pure hypercholesterolemia, unspecified; I10 Essential (primary) hypertension; Z86.73 Personal history of transient ischemic attack (TIA), and cerebral infarction without residual deficits
CPT/HCPCS: 36415; 71045; 80053; 81003; 83690; 85025; 85610; 93005; 96365; 96366; 96375; 99285; J0696; J2270; J2405; J3490; J7030

== ENCOUNTER 2023-07-15 05:00 | Emergency (ER) | payer MEDICAID ==
[~2023-07-15] VITALS: Ht 154.9 cm; Wt 73.0 kg
[~2023-07-15 05:00] MED LIST changes: +CEFP200T13 MT; +FAMO40TA70 MT
[2023-07-15 05:09] VITALS: BP 123/67; PULSE 90; RESP 18; TEMP 98.5; O2SAT 100
[2023-07-15] MEDS ORDERED: ACETAMINOPHEN 325MG TABLET PO ONE (06:15)
[2023-07-15] MEDS ORDERED: GUAI180L5 MT (08:34)
[2023-07-15] MEDS ORDERED: ACET-2708 PO (08:34)
[2023-07-15] MEDS ORDERED: AZIT250T12 MT (08:34)
== END 2023-07-15 09:10 | disposition home or self-care (01) ==
LOC: ER 05:41
DX: J20.9 Acute bronchitis, unspecified (principal); E11.9 Type 2 diabetes mellitus without complications; E78.00 Pure hypercholesterolemia, unspecified; I10 Essential (primary) hypertension; Z98.890 Other specified postprocedural states; Z79.899 Other long term (current) drug therapy; Z20.822 Contact with and (suspected) exposure to COVID-19
CPT/HCPCS: 99284; 71045; 87426; 87804 ×2; C9803

== ENCOUNTER 2025-08-03 23:23 | Emergency (ER) | payer MEDICAID ==
[~2025-08-03] VITALS: Ht 160 cm; Wt 59.0 kg
[~2025-08-03 23:23] MED LIST changes: +AMIT10TA13 PO; -AMIT10TA6 PO; -AZIT250T12 MT; -CEFP200T13 MT; -CEPH500C2 MT; -FAMO20TA8 PO; +GABA-1180 MT; -GABA-532 MT; +IBUP-1455 PO; +IBUP-2028 MT; -IBUP-2029 PO; +LEVO-65 MT; -LEVO500T2 PO; +LIP40 PO; +METR-167 MT; -NITR-87 MT; -OMEP20CA14 MT; +OMEP20TA23 PO; +ONDA-239 PO; -POLY119P2 PO; -PYR200 MT; -SULF-299 MT; -SULF1TAB48 PO
[2025-08-03 23:36] VITALS: O2SAT 99
[2025-08-03 23:59] LABS: HEMATOCRIT. 39.5 % (36.0-48.0); HEMOGLOBIN. 13.2 g/dL (12.0-16.0); MEAN PLATELET VOLUME 7.2 fl (7.4-10.4); PLATELET 230 x1000/uL (130-400); RED BLOOD CELL COUNT 4.30 mill/uL (4.2-5.4); RED CELL DISTRIBUTION WIDTH 13.8 % (11.6-14.6)
[2025-08-04 00:11] LABS: CREATININE 0.5 mg/dL (0.6-1.0); UREA NITROGEN BLOOD 18 mg/dL (9-23)
[2025-08-04 00:13] LABS: ASPARTATE AMINOTRANSFERASE 24 IU/L (<34); BILIRUBIN DIRECT < 0.1 mg/dL (<=3.0); BILIRUBIN TOTAL 0.3 mg/dL (0.1-1.0); TROPONIN I HIGH SENSITIVITY 10 ng/L (3.0-34)
[2025-08-04 00:14] LABS: PROTEIN TOTAL 6.3 g/dL (6.0-8.3)
[2025-08-04] MEDS: SODIUM CHLORIDE 0.9% 1,000 ML IV ONE (00:26)
[2025-08-04 03:34] LABS: BG DEOXYHEMOGLOBIN 4.4 % (0.0-5.0)
[2025-08-04 04:30] VITALS: BP 120/70; PULSE 72; RESP 12; TEMP 36.7; O2SAT 99
[2025-08-04 06:12] LABS: LYMPHOCYTES % MANUAL 17.0 % (20.0-60.0); MONOCYTES % MANUAL 9.0 % (2.0-8.0); NEUTROPHILS % MANUAL 74.0 % (45.0-75.0)
[2025-08-04 06:13] LABS: PLATELET ESTIMATE NORMAL
== END 2025-08-04 05:13 | disposition home or self-care (01) ==
LOC: ER 23:23
DX: E11.65 Type 2 diabetes mellitus with hyperglycemia (principal); Z79.899 Other long term (current) drug therapy; Z88.5 Allergy status to narcotic agent
CPT/HCPCS: 99285; 71045; 80076; 80048; 82010; 82962 ×2; 83735; 85025; 84484; 36415; 82375; 82803; 93005; 96360; 96361; J7030